=== PATIENT | female | born 2000 | race African-American/Black ===

== ENCOUNTER 2020-01-01 12:14 | Emergency (ER) | payer SELFPAY ==
[~2020-01-01] VITALS: Ht 154.9 cm; Wt 39.0 kg
[2020-01-01 12:21] VITALS: BP 115/83
[2020-01-01 13:08] LABS: CLARITY URINE CLOUDY (CLEAR); COLOR URINE DARK YELLOW (YELLOW); KETONES URINE 1+ (NEGATIVE); LEUKOCYTE ESTERASE URINE NEGATIVE (NEGATIVE); NITRITE URINE NEGATIVE (NEGATIVE); OCCULT BLOOD URINE NEGATIVE (NEGATIVE); PH URINE 6.5 (4.5-8.0); PROTEIN URINE TRACE (NEGATIVE); SPECIFIC GRAVITY URINE 1.029 (1.005-1.030)
[2020-01-01] MEDS: IBUPROFEN 600MG TABLET PO STA ×2 (13:13→13:19)
[2020-01-01 14:07] LABS: BASOPHILS % 0.6 % (0.0-2.0); EOSINOPHILS % 1.3 % (0.0-5.0); HEMATOCRIT. 37.6 % (36.0-48.0); MEAN CORPUSCULAR HEMOGLOBIN 30.8 pg (28.0-32.0); MEAN CORPUSCULAR VOLUME 89.3 fL (81.0-99.0); MEAN PLATELET VOLUME 6.9 fl (7.4-10.4); MONOCYTES % 7.1 % (2.0-8.0); PLATELET 508 x1000/uL (130-400); RED BLOOD CELL COUNT 4.21 mill/uL (4.2-5.4)
[2020-01-01 14:15] LABS: CHLORIDE 106 mEq/L (98-107)
== END 2020-01-01 15:15 | disposition home or self-care (01) ==
LOC: ER 12:14
DX: R05 Cough (principal); M79.18 Myalgia, other site; R06.02 Shortness of breath; R07.89 Other chest pain
CPT/HCPCS: 36415; 71045; 80053; 81003; 81025; 85025; 99284

== ENCOUNTER 2021-10-07 10:30 | Emergency (ER) | payer MEDICAID, OTHER ==
[~2021-10-07] VITALS: Ht 154.9 cm; Wt 39.0 kg
[2021-10-07] MEDS ORDERED: IBUPROFEN 400MG TABLET PO ONE (12:00)
[2021-10-07 12:18] VITALS: BP 111/48
== END 2021-10-07 13:15 | disposition left against medical advice (07) ==
LOC: ER 10:30
DX: M25.522 Pain in left elbow (principal); M25.562 Pain in left knee; M79.662 Pain in left lower leg; V49.49XA Driver injured in collision with other motor vehicles in traffic accident, initial encounter; Y93.89 Activity, other specified; Y92.488 Other paved roadways as the place of occurrence of the external cause
CPT/HCPCS: 81025; 99282

== ENCOUNTER 2022-01-07 15:37 | Emergency (ER) | payer MEDICAID, OTHER | END 2022-01-07 17:00 | disposition left against medical advice (07) | LOC: ER 15:37 | DX: Z53.21 Procedure and treatment not carried out due to patient leaving prior to being seen by health care provider (principal) ==

== ENCOUNTER 2023-03-06 19:16 | Emergency (ER) | payer OTHER ==
[~2023-03-06] VITALS: Ht 152.4 cm; Wt 41.0 kg
[2023-03-07] MEDS ORDERED: SULF1TAB48 MT (00:08)
[2023-03-07] MEDS ORDERED: IBUP-2029 MT (00:08)
[2023-03-07] MEDS ORDERED: IBUPROFEN 600MG TABLET PO ONE (00:15)
[2023-03-07] MEDS ORDERED: SULFAMETHOXAZOLE/TRIMETHOPRIM 800/160MG TABLET PO ONE (00:15)
[2023-03-07 01:06] VITALS: BP 90/57
== END 2023-03-07 01:09 | disposition home or self-care (01) ==
LOC: ER 19:16
DX: L03.317 Cellulitis of buttock (principal); Z79.899 Other long term (current) drug therapy
CPT/HCPCS: 81025; 99283

== ENCOUNTER 2023-08-23 12:22 | Emergency (ER) | payer OTHER ==
[~2023-08-23] VITALS: Ht 152.4 cm; Wt 36.0 kg
[~2023-08-23 12:22] MED LIST: IBUP-2029 MT; SULF1TAB48 MT
[2023-08-23 12:28] VITALS: BP 95/67; PULSE 79; RESP 18; TEMP 97.9; O2SAT 100
[2023-08-23 13:04] LABS: EOSINOPHILS % 1.9 % (0.0-5.0); HEMOGLOBIN. 12.7 g/dL (12.0-16.0); LYMPHOCYTES % 28.7 % (20.0-50.0); MEAN CORPUSCULAR HEMOGLOBIN 31.4 pg (28.0-32.0); MEAN CORPUSCULAR HGB CONC 34.2 g/dL (31.0-37.0); MEAN CORPUSCULAR VOLUME 91.8 fL (81.0-99.0); MEAN PLATELET VOLUME 7.2 fl (7.4-10.4); NEUTROPHILS % 63.4 % (40.0-76.0); PLATELET 322 x1000/uL (130-400); RED BLOOD CELL COUNT 4.02 mill/uL (4.2-5.4); RED CELL DISTRIBUTION WIDTH 13.4 % (11.6-14.6); WHITE BLOOD COUNT 5.3 x1000/uL (4.5-11.0)
[2023-08-23 13:14] LABS: CHLORIDE 107 mEq/L (98-107); INDEX HEMOLYSI 1 (1-3); INDEX ICTERIC 1 (1-4); INDEX LIPEMIC 1 (1-3); POTASSIUM 3.9 mEq/L (3.5-5.1); SODIUM 138 mEq/L (136-145)
[2023-08-23 13:22] LABS: ALANINE AMINOTRANSFERASE 30 IU/L (13-61); ASPARTATE AMINOTRANSFERASE 28 IU/L (15-37); BILIRUBIN TOTAL 0.5 mg/dL (0.1-1.0); CALCIUM 9.1 mg/dL (8.5-10.1); CARBON DIOXIDE 26 mEq/L (21-32); CREATININE 0.5 mg/dL (0.6-1.3); GLUCOSE 103 mg/dL (70-105); PROTEIN TOTAL 7.9 g/dL (6.0-8.3); UREA NITROGEN BLOOD 15 mg/dL (7-21)
[2023-08-23 13:50] LABS: CLARITY URINE CLOUDY (CLEAR); COLOR URINE YELLOW (YELLOW); GLUCOSE URINE NEGATIVE (NEGATIVE); KETONES URINE 2+ (NEGATIVE); LEUKOCYTE ESTERASE URINE 1+ (NEGATIVE); NITRITE URINE NEGATIVE (NEGATIVE); OCCULT BLOOD URINE NEGATIVE (NEGATIVE); PH URINE 7.5 (4.5-8.0); PROTEIN URINE NEGATIVE (NEGATIVE); SPECIFIC GRAVITY URINE 1.023 (1.005-1.030)
[2023-08-23 13:52] LABS: RBC URINE 0-2 /hpf (0-2); YEAST URINE NONE SEEN
[2023-08-23 14:06] LABS: MUCUS URINE 3+ /lpf (< = 2+); SQUAMOUS EPITHELIAL CELL URINE 3+ /lpf (RARE/1+)
[2023-08-23 14:09] LABS: BACTERIA URINE 3+
[2023-08-23] MEDS ORDERED: DOXY100C5 MT (16:51)
[2023-08-23] MEDS ORDERED: METR-167 MT (16:51)
[2023-08-23] MEDS ORDERED: CEFTRIAXONE SODIUM 500 MG/VIAL IM ONE (17:00)
[2023-08-23] MEDS ORDERED: LIDOCAINE HCL 1% 20ML VIAL (Pyxis) INJ INFIL ONE (17:00)
== END 2023-08-23 17:27 | disposition home or self-care (01) ==
LOC: ER 12:22
DX: M54.9 Dorsalgia, unspecified (principal); G71.00 Muscular dystrophy, unspecified
CPT/HCPCS: 87491; 87591; 80053; 81003; 81025; 85025; 87210; 36415; 96372; 99284; J0696; J3490; Z7610 ×2